=== PATIENT | female | born 1970 | race Two or more races ===

== ENCOUNTER 2021-12-14 10:15 | Emergency (ER) | payer MEDICAID ==
[~2021-12-14] VITALS: Ht 157.5 cm; Wt 77.2 kg
[2021-12-14 11:15] LABS: Urine Bacteria FEW /hpf (None Seen); Urine Blood 3+ /uL (Negative); Urine Specific Gravity 1.004 (1.001-1.035); Urine WBC 34 /hpf (0 - 5)
[2021-12-14] MEDS ORDERED: BACDST PO (12:13)
[2021-12-14] MEDS ORDERED: PHEN200T16 PO (12:13)
[2021-12-14 12:23] VITALS: BP 123/65
[2021-12-14] MEDS ORDERED: PHENAZOPYRIDINE HCL 100 MG TAB PO ONE (12:30)
== END 2021-12-14 12:22 | disposition home or self-care (01) ==
LOC: ER 10:20
DX: N39.0 Urinary tract infection, site not specified (principal); E11.9 Type 2 diabetes mellitus without complications; I10 Essential (primary) hypertension; Z88.8 Allergy status to other drugs, medicaments and biological substances
CPT/HCPCS: 81001

== ENCOUNTER 2023-08-11 08:20 | Emergency (ER) | payer MEDICAID, OTHER ==
[~2023-08-11] VITALS: Ht 157.5 cm; Wt 64.5 kg
[~2023-08-11 08:20] MED LIST: BACDST PO; PHEN-922 PO
[2023-08-11] MEDS ORDERED: NAP500T PO (09:38)
[2023-08-11] MEDS ORDERED: CYCL-837 PO (09:38)
[2023-08-11] MEDS: HYDROcodone-ACET 5/325MG TAB PO ONE (09:56)
[2023-08-11 10:53] VITALS: BP 133/68; PULSE 66; RESP 18; TEMP 98.1; O2SAT 96
== END 2023-08-11 10:58 | disposition home or self-care (01) ==
LOC: EDBD 08:20 → ER 08:20
DX: R07.89 Other chest pain (principal); R07.81 Pleurodynia; M54.2 Cervicalgia; I10 Essential (primary) hypertension; E11.9 Type 2 diabetes mellitus without complications; E03.9 Hypothyroidism, unspecified; Z79.899 Other long term (current) drug therapy; Z88.8 Allergy status to other drugs, medicaments and biological substances; V49.9XXA Car occupant (driver) (passenger) injured in unspecified traffic accident, initial encounter; Y93.89 Activity, other specified; Y92.410 Unspecified street and highway as the place of occurrence of the external cause; Y99.8 Other external cause status
CPT/HCPCS: 71046; 93005

== ENCOUNTER 2024-01-05 05:45 | Inpatient (IN) | payer MEDICAID ==
[~2024-01-05] VITALS: Ht 157.5 cm; Wt 75.6 kg
[~2024-01-05 05:45] MED LIST changes: +CYCL-837 PO; +NAP500T PO
[2024-01-05] MEDS: ONDANSETRON ODT 4 MG TAB PO ONE (06:10)
[2024-01-05 06:40] VITALS: PULSE 62; RESP 17; O2SAT 98
[2024-01-05 06:56] LABS: Basophils # (auto) 0 10 ^3/uL (0-0.2); Basophils % (auto) 0.2 % (0.0-2.0); Eosinophils # (auto) 0 10 ^3/uL (0-0.8); Eosinophils % (auto) 0.1 % (0.0-7.0); Hematocrit 47.2 % (36.0-46.0); Hemoglobin 16.2 g/dL (12.2-16.2); Lymphocytes # (auto) 0.9 10 ^3/uL (0.4-5.4); Lymphocytes % (auto) 6.8 % (10.0-50.0); Mean Corpuscular Hemoglobin 29.5 pg (28.0-32.0); Mean Corpuscular Hgb Conc. 34.3 g/dL (32.0-36.0); Mean Corpuscular Volume 86.2 fL (80.0-100.0); Monocytes # (auto) 0.4 10 ^3/uL (0-1.3); Monocytes % (auto) 3.2 % (0.0-12.0); Neutrophils # (auto) 11.9 10 ^3/uL (1.6-8.6); Neutrophils % (auto) 89.7 % (37.0-80.0); Platelet Count (auto) 344 10^3/uL (140-450); Red Blood Cells 5.48 10^6/uL (4.0-5.20); White Blood Cell 13.3 10^3/uL (4.4-10.8)
[2024-01-05 07:14] LABS: Alanine Aminotransferase 14 U/L (7-40); Alkaline Phosphatase 87 U/L (46-116); Anion Gap 7 (5-15); Aspartate Aminotransferase 12 U/L (13-40); BUN/Creatinine Ratio 17.6 (10.0-20.0); Bilirubin, Total 0.6 mg/dL (0.2-1.0); Blood Urea Nitrogen 12 mg/dL (9-23); Calcium 10.1 mg/dL (8.7-10.4); Carbon Dioxide 27 mmol/L (20-30); Chloride 102 mmol/L (98-107); Glucose 273 mg/dL (74-106); Lipase 33 U/L (12-53); Potassium 3.9 mmol/L (3.5-5.1); Sodium 136 mmol/L (136-145); Total Protein 7.8 g/dL (5.7-8.2)
[2024-01-05 07:15] LABS: Urine Bacteria None Seen /hpf (None Seen)
[2024-01-05 07:34] LABS: Urine Blood Negative /uL (Negative); Urine Clarity Turbid (Clear); Urine Color Light-Yellow (Yellow); Urine Protein, UAD Negative (Negative); Urine Specific Gravity 1.016 (1.001-1.035); Urine Urobilinogen Normal (Negative); Urine WBC 1 /hpf (0 - 5); Urine pH 7.5 (5.0-9.0)
[2024-01-05] MEDS: PIPERACILLIN-TAZOB 3.375GM 100 ML IV ONE (08:19)
[2024-01-05] MEDS: metroNIDAZOLE 500MG/100ML 100 ML IV ONE (08:20)
[2024-01-05] MEDS: SODIUM CHLORIDE 0.9% 1,000 ML IV ONE ×2 (08:20→08:23)
[2024-01-05] MEDS: MORPHINE SULFATE 4 MG/ML SYR/VIAL IV ONE (08:51)
[2024-01-05] MEDS: ONDANSETRON HCL 4 MG/2 ML VIAL IV ONE (08:52)
[2024-01-05] MEDS ORDERED: ONDANSETRON HCL 4 MG/2 ML VIAL IV PRN (14:15)
[2024-01-05] MEDS ORDERED: DEXTROSE (50%) 50ML SYRG IV PRN (14:45)
[2024-01-05] MEDS: CALCIUM GLUC 4.65 MEQ/10ML IV ONE (15:38)
[2024-01-05 15:59] VITALS: BP 129/59; PULSE 61; RESP 18; TEMP 99.4; O2SAT 100
[2024-01-05] MEDS: ACCU-CHEK COMFORT CURVE STRIP VI SCH (16:32)
[2024-01-05] MEDS: SODIUM CHLORIDE 0.9% 1,000 ML IV SCH (16:32)
[2024-01-05] MEDS: InsuLIN REG 1unit/0.01ml Soln (100units/ml) SC SCH (16:42)
[2024-01-05] MEDS ORDERED: DULO1CAP5 PO (17:11)
[2024-01-05] MEDS ORDERED: LEVO112T4 PO (17:11)
[2024-01-05] MEDS ORDERED: INSU1INJ19 SC (17:11)
[2024-01-05] MEDS ORDERED: AMLO1TAB23 PO (17:11)
[2024-01-05] MEDS ORDERED: METF-370 PO (17:11)
[2024-01-05] MEDS ORDERED: DAPA1TAB4 PO ×2 (17:11→17:21)
[2024-01-05] MEDS ORDERED: INSLANTI SC (17:21)
[2024-01-05] MEDS ORDERED: METH-1182 PO (17:21)
[2024-01-05] MEDS ORDERED: TIZA4CAP PO (17:21)
[2024-01-05 17:28] LABS: Partial Thromboplastin Time 26.5 SEC (24.5-34.5); Prothrombin Time 10.6 sec (9.3-11.8)
[2024-01-05] MEDS: MORPHINE SULFATE INJ 2 MG/ml SYRG IV PRN (18:53)
[2024-01-05 20:00] VITALS: PULSE 71; RESP 20; O2SAT 95
[2024-01-05 21:00] VITALS: BP 127/57; PULSE 71; RESP 20; TEMP 100.4; O2SAT 95
[2024-01-05] MEDS: PIPERACILLIN-TAZOB 3.375GM 100 ML IV SCH (21:42)
[2024-01-06] VITALS (8 sets, daily range): BP systolic 109–124; BP diastolic 47–54; PULSE 61–83; RESP 17–21; TEMP 97.9–100.4; O2SAT 83–95
[2024-01-06 05:59] LABS: Alanine Aminotransferase 12 U/L (7-40); Albumin 3.8 g/dL (3.2-4.8); Alkaline Phosphatase 58 U/L (46-116); Anion Gap 5 (5-15); Aspartate Aminotransferase 10 U/L (13-40); BUN/Creatinine Ratio 8.1 (10.0-20.0); Basophils # (auto) 0 10 ^3/uL (0-0.2); Basophils % (auto) 0.2 % (0.0-2.0); Bilirubin, Total 0.6 mg/dL (0.2-1.0); Blood Urea Nitrogen 6 mg/dL (9-23); Calcium 8.6 mg/dL (8.7-10.4); Carbon Dioxide 27 mmol/L (20-30); Chloride 108 mmol/L (98-107); Eosinophils # (auto) 0 10 ^3/uL (0-0.8); Glucose 183 mg/dL (74-106); Hematocrit 40.6 % (36.0-46.0); Lymphocytes % (auto) 8.2 % (10.0-50.0); Mean Corpuscular Hemoglobin 30.1 pg (28.0-32.0); Mean Corpuscular Hgb Conc. 34.4 g/dL (32.0-36.0); Mean Corpuscular Volume 87.4 fL (80.0-100.0); Monocytes # (auto) 0.7 10 ^3/uL (0-1.3); Monocytes % (auto) 5.5 % (0.0-12.0); Neutrophils # (auto) 10.8 10 ^3/uL (1.6-8.6); Neutrophils % (auto) 86.1 % (37.0-80.0); Platelet Count (auto) 276 10^3/uL (140-450); Potassium 3.6 mmol/L (3.5-5.1); Red Blood Cells 4.64 10^6/uL (4.0-5.20); Red Cell Distribution Width 13.2 % (11.8-14.3); Sodium 140 mmol/L (136-145); White Blood Cell 12.6 10^3/uL (4.4-10.8)
[2024-01-06] MEDS ORDERED: fentaNYL CITRATE 100 MCG/2 ML VL ONE ×2 (08:47→09:45)
[2024-01-06] MEDS ORDERED: ePHEDrine SULFATE 50 MG/ML AMP ONE (09:02)
[2024-01-06] MEDS ORDERED: ONDANSETRON HCL 4 MG/2 ML VIAL ONE (09:03)
[2024-01-06] MEDS ORDERED: DexAMETHasone SOD PHOS 10MG/1ML VIAL INJ ONE (09:03)
[2024-01-06] MEDS ORDERED: PROPOFOL 10 MG/ML 20 ML IV ONE (09:03)
[2024-01-06] MEDS ORDERED: MEPERIDINE HCL (50 MG/ML) 1 ML VIAL ONE (09:35)
[2024-01-06] MEDS ORDERED: ROCURONIUM 10MG/ML 10ML VIAL IV ONE (09:44)
[2024-01-06] MEDS: PANTOPRAZOLE 40 MG/10 ML VIAL INJ IV SCH (10:00)
[2024-01-06] MEDS ORDERED: HYDROmorphone HCL 2 MG/ML VL/or syr IV PRN ×2 (10:00→10:45)
[2024-01-06] MEDS ORDERED: SUGAMMADEX 200mg/2ml Vial (100MG/ML) IV ONE (10:01)
[2024-01-06] MEDS ORDERED: MEPERIDINE HCL (25 MG/ML) 1ML VIAL ONE (10:08)
[2024-01-06] MEDS ORDERED: ONDANSETRON HCL 4 MG/2 ML VIAL IV ONE (10:45)
[2024-01-06] MEDS ORDERED: MEPERIDINE HCL (25 MG/ML) 1ML VIAL IV PRN (10:45)
[2024-01-06] MEDS: D5W/SOD CHL 0.45%/KCL 20MEQ 1,000 ML IV SCH (11:52)
[2024-01-06] MEDS: metroNIDAZOLE 500MG/100ML 100 ML IV SCH (15:27)
[2024-01-06] MEDS: ceFAZolin 1GM/50ML 50 ML IV SCH (15:28)
[2024-01-07] VITALS (7 sets, daily range): BP systolic 104–154; BP diastolic 43–74; PULSE 57–80; RESP 16–20; TEMP 98.6–99.5; O2SAT 91–97
[2024-01-07 06:42] LABS: Basophils # (auto) 0 10 ^3/uL (0-0.2); Basophils % (auto) 0.1 % (0.0-2.0); Eosinophils # (auto) 0 10 ^3/uL (0-0.8); Hematocrit 37.5 % (36.0-46.0); Hemoglobin 12.9 g/dL (12.2-16.2); Lymphocytes # (auto) 1.2 10 ^3/uL (0.4-5.4); Lymphocytes % (auto) 10.1 % (10.0-50.0); Mean Corpuscular Hemoglobin 30.3 pg (28.0-32.0); Mean Corpuscular Hgb Conc. 34.4 g/dL (32.0-36.0); Monocytes # (auto) 0.7 10 ^3/uL (0-1.3); Monocytes % (auto) 5.8 % (0.0-12.0); Neutrophils # (auto) 9.8 10 ^3/uL (1.6-8.6); Platelet Count (auto) 261 10^3/uL (140-450); Red Blood Cells 4.26 10^6/uL (4.0-5.20); Red Cell Distribution Width 13.4 % (11.8-14.3); White Blood Cell 11.7 10^3/uL (4.4-10.8)
[2024-01-07 06:44] LABS: Alanine Aminotransferase 22 U/L (7-40); Albumin 3.9 g/dL (3.2-4.8); Alkaline Phosphatase 71 U/L (46-116); Anion Gap 4 (5-15); Aspartate Aminotransferase 16 U/L (13-40); BUN/Creatinine Ratio 6.9 (10.0-20.0); Blood Urea Nitrogen 5 mg/dL (9-23); Carbon Dioxide 26 mmol/L (20-30); Chloride 107 mmol/L (98-107); Glucose 221 mg/dL (74-106); Magnesium 1.9 mg/dL (1.6-2.6); Sodium 137 mmol/L (136-145)
[2024-01-07 06:45] LABS: Bilirubin, Total 0.4 mg/dL (0.2-1.0); Total Protein 6.2 g/dL (5.7-8.2)
[2024-01-07] MEDS: SODIUM CHLORIDE 0.9% 1,000 ML IV SCH (14:11)
[2024-01-07] MEDS: ACETAMINOPHEN/CODEINE#3 (300/30mg) TAB PO PRN (14:16)
[2024-01-08] VITALS (7 sets, daily range): BP systolic 132–165; BP diastolic 45–82; PULSE 60–75; RESP 15–20; TEMP 97.6–99.1; O2SAT 92–96
[2024-01-08] MEDS: LACTULOSE 20Gm/30ML SOLN PO ONE (12:01)
[2024-01-08] MEDS: DOCUSATE SOD 100 MG CAP PO ONE (12:02)
[2024-01-08] MEDS: INSULIN LANTUS (GLARGINE) 1 /0.01ml (100units/ml) SC SCH (21:35)
[2024-01-08] MEDS: DOCUSATE SOD 100 MG CAP PO SCH (21:40)
[2024-01-09 00:54] VITALS: BP 138/53; PULSE 60; RESP 16; TEMP 98.6; O2SAT 94
[2024-01-09 04:54] VITALS: BP 151/69; PULSE 60; RESP 18; TEMP 98.8; O2SAT 95
[2024-01-09 07:28] LABS: Basophils # (auto) 0 10 ^3/uL (0-0.2); Basophils % (auto) 0.4 % (0.0-2.0); Eosinophils # (auto) 0.1 10 ^3/uL (0-0.8); Eosinophils % (auto) 2.2 % (0.0-7.0); Hematocrit 36.8 % (36.0-46.0); Hemoglobin 12.9 g/dL (12.2-16.2); Lymphocytes # (auto) 1.1 10 ^3/uL (0.4-5.4); Lymphocytes % (auto) 24.4 % (10.0-50.0); Mean Corpuscular Hemoglobin 30.8 pg (28.0-32.0); Mean Corpuscular Hgb Conc. 35.1 g/dL (32.0-36.0); Mean Corpuscular Volume 87.8 fL (80.0-100.0); Monocytes # (auto) 0.4 10 ^3/uL (0-1.3); Monocytes % (auto) 9.2 % (0.0-12.0); Neutrophils # (auto) 2.8 10 ^3/uL (1.6-8.6); Neutrophils % (auto) 63.8 % (37.0-80.0); Platelet Count (auto) 277 10^3/uL (140-450); Red Blood Cells 4.19 10^6/uL (4.0-5.20); Red Cell Distribution Width 13.1 % (11.8-14.3); White Blood Cell 4.3 10^3/uL (4.4-10.8)
[2024-01-09 07:32] LABS: Alanine Aminotransferase 161 U/L (7-40); Alkaline Phosphatase 72 U/L (46-116); Anion Gap 5 (5-15); Blood Urea Nitrogen 7 mg/dL (9-23); Calcium 8.8 mg/dL (8.7-10.4); Carbon Dioxide 28 mmol/L (20-30); Chloride 106 mmol/L (98-107); Glucose 203 mg/dL (74-106); Magnesium 1.8 mg/dL (1.6-2.6); Sodium 139 mmol/L (136-145)
[2024-01-09 07:33] LABS: Albumin 3.6 g/dL (3.2-4.8); Aspartate Aminotransferase 318 U/L (13-40)
[2024-01-09 07:34] LABS: Bilirubin, Total 0.4 mg/dL (0.2-1.0); Total Protein 5.7 g/dL (5.7-8.2)
[2024-01-09] MEDS: SUCCINYLCHOLINE CHLORIDE 20 MG/ML 10ML VIAL IV ONE (07:45)
[2024-01-09] MEDS: POVIDONE IODINE 10 % TOPICAL OINT 30GM TOP ONE (07:45)
[2024-01-09 08:00] VITALS: PULSE 63; RESP 17; O2SAT 96
[2024-01-09 08:57] VITALS: BP 131/68; PULSE 55; RESP 12; TEMP 98.4; O2SAT 96
[2024-01-09 11:11] VITALS: BP 131/68; PULSE 63; RESP 17; TEMP 98.8; O2SAT 96
[2024-01-09 13:00] VITALS: BP 142/61; PULSE 58; RESP 17; TEMP 98.2; O2SAT 97
[2024-01-09] MEDS ORDERED: CEPH500C PO (14:31)
[2024-01-09] MEDS ORDERED: DOCU-94 PO (14:31)
[2024-01-09] MEDS ORDERED: ACE3T PO (14:31)
== END 2024-01-09 13:00 | disposition home or self-care (01) | DRG 234 ==
LOC: ER 05:45 → OVERFLOW 14:10 → WEST WING 15:52
PROVIDERS: ADMIT Registered Nurse General Practice; ATTEND Internal Medicine Geriatric Medicine
PROC: 0WJG4ZZ Inspection of Peritoneal Cavity, Percutaneous Endoscopic Approach (ICD-10-PCS; 2024-01-06)
PROC: 0UB10ZZ Excision of Left Ovary, Open Approach (ICD-10-PCS; 2024-01-06)
PROC: 0DTJ0ZZ Resection of Appendix, Open Approach (ICD-10-PCS; principal; 2024-01-06 08:49)
DX: K35.80 Unspecified acute appendicitis (principal); D27.1 Benign neoplasm of left ovary; E03.9 Hypothyroidism, unspecified; Z53.31 Laparoscopic surgical procedure converted to open procedure; E11.65 Type 2 diabetes mellitus with hyperglycemia; J98.11 Atelectasis; I10 Essential (primary) hypertension; K52.9 Noninfective gastroenteritis and colitis, unspecified; E86.0 Dehydration; K59.00 Constipation, unspecified; E66.9 Obesity, unspecified; Z68.30 Body mass index [BMI] 30.0-30.9, adult; Z79.899 Other long term (current) drug therapy; Z79.4 Long term (current) use of insulin; Z88.8 Allergy status to other drugs, medicaments and biological substances
CPT/HCPCS: 36415; 71045; 74176; 80053; 81001; 82962; 83036; 83605; 83690; 83735; 85025; 85610; 85730; 86141; 86850; 86900; 86901; 87040; 87070; 87075; 87205; 99291; G0378; J0330; J1100; J1815; J2405; J2470; J2543; J2704; J3490; Q0162